=== PATIENT | female | born 1970 | race Caucasian/White ===

== ENCOUNTER 2016-12-14 05:41 | Emergency (ER) | payer MEDICAID, OTHER ==
[~2016-12-14] VITALS: Ht 162.6 cm; Wt 97.0 kg
[~2016-12-14 05:41] MED LIST: BACTDS PO; HYDR-3011 PO; PREN-29 PO; TRIA15CR52 TOP
[2016-12-14 05:47] VITALS: Ht 162.6 cm; Wt 97.0 kg
[2016-12-14] MEDS ORDERED: HYDR-906 PO (06:16)
[2016-12-14] MEDS ORDERED: PEN500 PO (06:16)
[2016-12-14] MEDS ORDERED: NAPR-260 PO (06:17)
--- NOTE | 2016-12-14 06:24 | ERD ---
ER Documentation Chief Complaint Date/Time DATE: 12/14/16 TIME: 06:19 Chief Complaint pain left side of face x 3 days. no neuro deficit HPI This is a 46-year-old female who presents to the emergency department today complaining of left-sided facial pain. Patient states that she tried Tylenol or Motrin for pain. States she has pain with eating when she opens and closes her jaw. States she has not been to the dentist in quite some time. Denies any fevers or chills, sore throat, earache ROS All systems reviewed and are negative except as per history of present illness. Medications Home Meds Active Scripts Naproxen* (Naprosyn*) 500 Mg Tablet, 500 MG PO BID Y for PAIN AND/OR INFLAMMATION, #30 TAB Prov:VALERIY KWOK PA-C 12/14/16 Penicillin V Potassium* (Penicillin V K*) 500 Mg Tab, 500 MG PO QID for 7 Days, TAB Prov:VALERIY KWOK PA-C 12/14/16 Hydrocodone/Acetaminophen ([place] 5-325 Tablet) 1 Each Tablet, 1 TAB PO Q6H Y for PAIN, #10 TAB Prov:VALERIY KWOK PA-C 12/14/16 Sulfamethoxazole-Trimethoprim* (Bactrim* DS) 800-160 Mg Tab, 1 TAB PO BID for 10 Days, TAB Prov:COURTNEY LANGFORD NP 01/30/15 Hydroxyzine Hcl* (Hydroxyzine Hcl*) 25 Mg Tablet, 25 MG PO Q8H Y for ITCHING, # 30 TAB Prov:COURTNEY LANGFORD NP 01/30/15 Triamcinolone Acetonide* (Kenalog*) 0.5%-15GM Cr, 1 APPLIC TOP BID, #1 TUB Prov:COURTNEY LANGFORD NP 01/30/15 Reported Medications Vit-Fe Fumarate-FA* (Ned Tablet*) 1 Tab Tablet, 1 TAB PO DAILY, TAB 06/08/14 Allergies Allergies: Coded Allergies: No Known Allergies (Verified Allergy, Unknown, 12/14/16) PMhx/Soc History of Surgery: Yes (c section) Anesthesia Reaction: No Hx Neurological Disorder: No Hx Respiratory Disorders: No Hx Cardiac Disorders: No Hx Psychiatric Problems: No Hx Miscellaneous Medical Probl: Yes (eczema) Hx Alcohol Use: No Hx Substance Use: No Hx Tobacco Use: No Smoking Status: Never smoker Physical Exam Vitals Vital Signs Date Time Temp Pulse Resp B/P Pulse Ox O2 Delivery O2 Flow Rate FiO2 12/14/16 05:47 98.2 89 20 108/62 89 Physical Exam Const: No acute distress Head: Atraumatic. Eyes: Normal Conjunctiva. PERRLA. EOM intact ENT: Ears TMs normal. Nose no drainage. Throat no erythema no exudate. No evidence of abscess. tenderness palpation TMJ joint. Neck: Full range of motion..~ No meningismus. Resp: Clear to auscultation bilaterally Cardio: Regular rate and rhythm, no murmurs Skin: No petechiae or rashes Neur: Awake and alert. No focal neurologic deficits. No gait ataxia. Patient able to wrinkle her forehead. Psych: Normal Mood and Affect Results 24 hrs Current Medications Medications (Trade) Dose Ordered Sig/Kailash Route PRN Reason Start Time Stop Time Status Last Admin Dose Admin Acetaminophen/ Hydrocodone Bitart ([place] (5/325)) 1 tab ONCE ONCE PO 12/14/16 06:30 12/14/16 06:31 Procedures/MDM This 46-year-old female who presents the emergency department today complaining of left-sided facial pain and pain in her jaw with opening and closing. Patient is afebrile and otherwise well-appearing. Do not feel she requires laboratory workup or imaging at this time. Patient symptoms most consistent with TMJ syndrome given her pain with opening and closing and pain with eating. Low suspicion for dental abscess however patient has multiple fillings and patient also reported not going to the dentist" a long time". She also has an area on her upper left molars where it appears where her molars may be trying to come in. Given this I did give the patient a prescription for penicillin VK to treat potential infection versus dental abscess. Patient has no focal neurologic deficits she has no numbness and tingling. Patient is able to wrinkle her forehead and I have low suspicion for acute hemorrhage, stroke, Staley 's palsy, facial nerve palsy, parotitis, mastoiditis, sepsis, deep space tracking infection. She was given [place] here in the emergency department. I give her prescription for Pen-Vee K for home as well as a short course of [place] and Naprosyn for pain. She is instructed to follow-up with her dentist and primary care doctor. Patient indicated that she has a primary care doctor but has never been to see them. I explained to her that she should follow-up regularly with her primary care doctor. Patient understood At this time the patient is stable for discharge and outpatient management. Patient should follow up with their PCP in the next 1-2 days. They may return to the emergency department sooner for any persistent or worsening of symptoms. Patient understood and agreed with the plan. Departure Diagnosis: Primary Impression: Jaw pain Condition: Fair Patient Instructions: Tmj Syndrome Additional Instructions: Call your primary care doctor TOMORROW for an appointment during the next 1-2 days.See the doctor sooner or return here if your condition worsens before your appointment time. Make an appointment with your dentist Take [place] for severe pain otherwise take Tylenol or Naprosyn or Motrin Take antibiotics as prescribed VALERIY KWOK PA-C December 14, 2016 06:24
[2016-12-14] MEDS ORDERED: HYDROCODONE/APAP (5/325) TAB PO ONE (06:30)
== END 2016-12-14 06:44 | disposition home or self-care (01) ==
LOC: FTE 05:41
DX: R68.84 Jaw pain (principal)
CPT/HCPCS: Z7502; Z7610; 99284

== ENCOUNTER 2017-09-06 06:36 | Emergency (ER) | END 2017-09-06 08:31 | disposition home or self-care (01) ==